=== PATIENT | female | born 1990 | race Caucasian/White ===

== ENCOUNTER 2024-11-02 20:52 | Emergency (ER) | payer OTHER ==
[~2024-11-02] VITALS: Ht 177.8 cm; Wt 81.6 kg
[2024-11-02] MEDS ORDERED: diphenhydrAMINE HCL ELIX 25 MG/10 ML UDC ONE (22:35)
[2024-11-02] MEDS ORDERED: FAMOTIDINE (20 MG) 20 MG TABLET ONE (22:35)
[2024-11-02] MEDS ORDERED: predniSONE 20 MG TABLET ONE (22:35)
[2024-11-02] MEDS: predniSONE 50 MG TABLET PO ONE (22:39)
[2024-11-02] MEDS: FAMOTIDINE (20 MG) 20 MG TABLET PO ONE (22:39)
[2024-11-02] MEDS: DIPHENHYDRAMINE HCL 12.5 MG/5 ML UDC PO ONE (22:39)
[2024-11-02] MEDS ORDERED: PRED50TA PO (23:03)
[2024-11-02 23:07] VITALS: BP 109/66; TEMP 98.5; O2SAT 99
== END 2024-11-02 23:08 | disposition home or self-care (01) ==
LOC: ER 20:57
DX: T78.40XA Allergy, unspecified, initial encounter (principal); R21 Rash and other nonspecific skin eruption; Z88.0 Allergy status to penicillin; X58.XXXA Exposure to other specified factors, initial encounter
CPT/HCPCS: 99284; Q0163 ×2; J7512